=== PATIENT | male | born 1980 | race Hispanic/Latino ===

== ENCOUNTER 2018-11-16 16:27 | Emergency (ER) | payer SELFPAY ==
[2018-11-16] MEDS ORDERED: DEXAMETHASONE SOD PHOSPHATE 10MG/ML 1ML VIAL ONE (19:15)
[2018-11-16] MEDS ORDERED: KETOROLAC TROMETHAMINE 60 MG/2 ML VIAL ONE (19:15)
[2018-11-16] MEDS ORDERED: HYDROCODONE/ACETAMINOPHEN 10/325 MG TAB ONE (19:16)
== END 2018-11-16 19:37 | disposition home or self-care (01) ==
LOC: EDH 16:27
DX: M54.5 Low back pain (principal); Z72.0 Tobacco use
CPT/HCPCS: 96372 ×2; 99283; J1100; J1885